=== PATIENT | female | born 1980 | race Two or more races ===

== ENCOUNTER 2017-03-27 16:50 | Emergency (ER) | payer MEDICAID ==
[~2017-03-27] VITALS: Ht 162.6 cm; Wt 54.4 kg
[2017-03-27 16:50] VITALS: BP 140/96
== END 2017-03-27 19:08 | disposition home or self-care (01) ==
LOC: ER 16:55
DX: R51 Headache (principal); J32.0 Chronic maxillary sinusitis; N83.209 Unspecified ovarian cyst, unspecified side
CPT/HCPCS: 70450; 84703; 99284; A4606; Z7610

== ENCOUNTER 2020-08-04 19:44 | Emergency (ER) | payer MEDICAID ==
[~2020-08-04] VITALS: Ht 162.6 cm; Wt 54.4 kg
[2020-08-04 19:44] VITALS: BP 149/83
--- NOTE | 2020-08-04 19:50 | NUR ---
DR NEGRETE AT BEDSIDE FOR EVAL
--- NOTE | 2020-08-04 20:13 | NUR ---
Patient discharged to home in stable condition. Written and verbal after care instructions given. Patient verbalizes understanding of instruction.
== END 2020-08-04 20:14 | disposition home or self-care (01) ==
LOC: ER 19:52
DX: R51 Headache (principal); H61.23 Impacted cerumen, bilateral; Z90.89 Acquired absence of other organs; Z98.890 Other specified postprocedural states; Z60.2 Problems related to living alone